=== PATIENT | male | born 1940 | race Caucasian/White ===

== ENCOUNTER 2019-10-13 14:13 | Outpatient (CLI) | payer MEDICARE ==
--- NOTE | 2019-10-13 14:56 | RAD ---
EXAM: Chest PA and lateral: HISTORY: Dyspnea COMPARISON: 12/14/2018 FINDINGS: Heart: Normal cardiac silhouette Aorta: Unremarkable Pulmonary vessels: Normal Costophrenic angles: Costophrenic angles are clear. Lungs: Hyperinflation with chronic changes. No masses or consolidation. Pneumothorax: No pneumothorax Osseous structures: Old left rib fracture. IMPRESSION: Chronic changes. No acute cardiopulmonary process. Hyperinflation. COPD.
== END 2019-10-13 14:14 | disposition home or self-care (01) ==
LOC: RAD 14:13
PROVIDERS: ATTEND Internal Medicine Pulmonary Disease
DX: R06.00 Dyspnea, unspecified (principal); J44.9 Chronic obstructive pulmonary disease, unspecified; J98.4 Other disorders of lung
CPT/HCPCS: 71046

== ENCOUNTER 2024-06-12 12:25 | Outpatient (CLI) | payer MEDICARE | END 2024-06-12 12:26 | disposition home or self-care (01) | LOC: CT 12:25 | PROVIDERS: ATTEND Internal Medicine | DX: J96.11 Chronic respiratory failure with hypoxia (principal); J44.9 Chronic obstructive pulmonary disease, unspecified; I77.810 Thoracic aortic ectasia; J94.8 Other specified pleural conditions; J98.6 Disorders of diaphragm | CPT/HCPCS: 71250 ==

== ENCOUNTER 2024-06-18 08:00 | Outpatient (CLI) | payer MEDICARE | END 2024-06-18 08:01 | disposition home or self-care (01) | LOC: PET 08:00 | PROVIDERS: ATTEND Internal Medicine | DX: J44.9 Chronic obstructive pulmonary disease, unspecified (principal); R91.1 Solitary pulmonary nodule | CPT/HCPCS: 78815; A9552 ==

== ENCOUNTER 2025-08-24 04:32 | Inpatient (IN) | payer MEDICARE ==
[2025-08-24 04:53] LABS: #Basophils 0.07 10x3/uL (0.0-0.2); #Eosinophils 0.28 10x3/uL (0.0-0.7); #Monocytes 1.86 10x3/uL (0.11-0.59); #Neutrophils 15.49 10x3/uL (1.40-6.50); %Basophils 0.4 % (0.0-1.0); %Eosinophils 1.5 % (0.0-10.0); %Lymphocytes 7.5 % (21.0-51.0); %Monocytes 9.7 % (0.0-10.0); %Neutrophils 80.4 % (42.0-75.0); Hematocrit 42.3 % (42.0-52.0); Hemoglobin 12.5 g/dL (14.0-18.0); Mean Corpuscular Hemoglobin 25.6 pg (27.0-31.0); Mean Corpuscular Volume 86.5 fL (78.0-98.0); Platelet Count 351 10x3/uL (130-400); Red Blood Cell (RBC) Count 4.89 mill/uL (4.70-6.10); White Blood Cell (WBC) Count 19.23 10x3/uL (4.8-10.8)
[2025-08-24 05:08] LABS: ALT (SGPT) 12 U/L (Less than 45); AST (SGOT) 15 U/L (11-34); Albumin 3.8 g/dL (3.1-4.5); Alkaline Phosphatase 115 U/L (40-110); Anion Gap 13 mmol/L (10-20); BUN (Urea Nitrogen) 28 mg/dL (8.4-25.7); Bilirubin, Total 0.3 mg/dL (0.3-1.2); Calc. Creatinine Clearance 0 mL/min (70-130); Calcium 8.9 mg/dL (7.8-10.44); Carbon Dioxide 30 mmol/L (23-31); Chloride 105 mmol/L (98-107); Globulin 2.9 g/dL (2.4-3.5); Glucose 83 mg/dL (83-110); Magnesium 2.3 mg/dL (1.6-2.6); Potassium 4.3 mmol/L (3.5-5.1); Sodium 144 mmol/L (136-145)
[2025-08-24] MEDS ORDERED: LevoFLOXacin D5W 500 mg (100 mL) BAG ONE (05:13)
[2025-08-24] MEDS ORDERED: Aspirin Chewable 81 MG TAB ONE (05:19)
[2025-08-24] MEDS ORDERED: Nitroglycerin 2% Ointment 1 INCH/1 GM Packet ONE (05:19)
[2025-08-24] MEDS ORDERED: Albuterol 2.5 MG (3 mL) NEB ONE (05:31)
[2025-08-24] MEDS ORDERED: Melatonin 3 MG TAB PO PRN (05:41)
[2025-08-24] MEDS ORDERED: Ondansetron PF 4 MG/2 ML Vial IVP PRN (05:41)
[2025-08-24] MEDS ORDERED: Acetaminophen 325 MG TAB PO PRN (05:41)
[2025-08-24] MEDS ORDERED: Senokot S 8.6-50 MG TAB PO PRN (05:41)
[2025-08-24] MEDS ORDERED: Electrolyte Replacement Protocol 1 EACH FS SCH (05:45)
[2025-08-24] MEDS ORDERED: Albuterol 2.5 MG (3 mL) NEB NEB PRN (06:18)
[2025-08-24] MEDS ORDERED: Mometasone 200 MCG/Formoterol 5 MCG 120 PUFF INHALER INH SCH (06:30)
[2025-08-24 06:50] LABS: Actual Bicarbonate (HCO3a) 25.3 mEq/L (22-28); Analyzer IN Cardio ER; Base Excess (BEa) -3.0 mEq/L (-2.0 to +3.0); Calcium, Ionized (arterial) 1.20 mmol/L (1.12-1.30); Hematocrit-ABG 39 % (42.0-52.0); Hemoglobin (Hb) 13.1 g/dL (14.0-18.0); O2 Tension (PaO2), arterial 201.2 mmHg (> 60.0); Potassium - ABG Lab 4.20 mmol/L (3.70-5.30); pH, Arterial 7.242 (7.35-7.45)
[2025-08-24 06:54] LABS: CO2 Tension 60.1 mmHg (35.0-45.0)
[2025-08-24] MEDS ORDERED: Enoxaparin 40 MG (0.4 mL) SYRINGE ONE (08:30)
[2025-08-24] MEDS ORDERED: Famotidine 20 MG TAB ONE (08:30)
[2025-08-24] MEDS: Enoxaparin 40 MG (0.4 mL) SYRINGE SC SCH (08:33)
[2025-08-24] MEDS: Famotidine 20 MG TAB PO SCH (08:34)
[2025-08-24 14:35] VITALS: BP 149/87; TEMP 98
[2025-08-24 15:20] LABS: Bacteria/HPF None Seen HPF (None Seen); Glucose, Urine (Dipstick) Normal (Negative); Leukocyte Negative Leu/uL (Negative); Protein, Urine (Dipstick) Negative (Neg-Trace); RBC/HPF None Seen HPF (0-3); Specific Gravity, Urine 1.015 (1.002-1.036); WBC/HPF 0-3 HPF (0-3)
[2025-08-24] MEDS ORDERED: cefTRIAXone\\ROCEPHIN 1 GM in Sodium Chloride 0.9% 100 ML IVPB SCH (18:00)
[2025-08-24] MEDS ORDERED: Mirtazapine 15 MG TAB PO SCH (21:00)
== END 2025-08-24 16:15 | disposition short-term general hospital (02) | DRG 189 ==
LOC: ERS 04:32 → ERHOLD 06:01
PROVIDERS: ADMIT Internal Medicine; ATTEND Internal Medicine
PROC: 3E03329 Introduction of Other Anti-infective into Peripheral Vein, Percutaneous Approach (ICD-10-PCS; principal; 2025-08-24)
PROC: 5A09357 Assistance with Respiratory Ventilation, Less than 24 Consecutive Hours, Continuous Positive Airway Pressure (ICD-10-PCS; 2025-08-24)
DX: J96.21 Acute and chronic respiratory failure with hypoxia (principal); K51.90 Ulcerative colitis, unspecified, without complications; K57.20 Diverticulitis of large intestine with perforation and abscess without bleeding; J44.1 Chronic obstructive pulmonary disease with (acute) exacerbation; F32.A Depression, unspecified; F41.9 Anxiety disorder, unspecified; R07.9 Chest pain, unspecified; Z98.890 Other specified postprocedural states; Z90.49 Acquired absence of other specified parts of digestive tract; Z87.891 Personal history of nicotine dependence; Z99.81 Dependence on supplemental oxygen; Z91.041 Radiographic dye allergy status
CPT/HCPCS: 36415; 71045; 80053; 81001; 82805; 83605; 83735; 83880; 84484; 85025; 87040; 93005; 94640; 94660; 96365; 96366; 96375; J1650; J1956; J2060; J2919; J7611